=== PATIENT | male | born 1980 | race Caucasian/White ===

== ENCOUNTER 2020-04-20 18:29 | Emergency (ER) | payer OTHER ==
[~2020-04-20] VITALS: Ht 193 cm; Wt 134.1 kg
[2020-04-20] MEDS ORDERED: LIDOcaine 1% W/epiNEPHrine 1:100,000 20ml vial SQ ONE (19:10)
[2020-04-20 19:38] VITALS: BP 130/77
== END 2020-04-20 19:41 | disposition home or self-care (01) ==
LOC: ER 18:29
DX: S61.412A Laceration without foreign body of left hand, initial encounter (principal); I10 Essential (primary) hypertension; F17.200 Nicotine dependence, unspecified, uncomplicated; Z72.89 Other problems related to lifestyle; W45.8XXA Other foreign body or object entering through skin, initial encounter; Y93.89 Activity, other specified; Y92.89 Other specified places as the place of occurrence of the external cause; Y99.8 Other external cause status
CPT/HCPCS: 12001; 99282